=== PATIENT | male | born 1995 | race Caucasian/White ===

== ENCOUNTER 2017-07-20 21:26 | Emergency (ER) | payer BC, OTHER ==
--- NOTE | 2017-07-20 21:29 | PDOC ---
History of Present Illness - History of Present Illness Initial Comments: 07/20/17 21:53 Patient is a 22 M, with no significant PMHx, who presents with right knee injury , Patient states that he was playing basketball, planted right foot, and turned to the right and hurt his right knee. Patient injured this knee in 2011 and had surgery done for a ligament tear and bone fracture. ROS General: No fevers or chills, no weakness, no weight loss HEENT: No change in vision. No sore throat, No ear pain Cardiovascular: No chest pain or shortness of breath Respiratory:No cough, or wheezing. Gastrointestinal: No nausea, vomiting, diarrhea or constipation, No rectal bleeding Genitourinary: No dysuria, hematuria, or frequency Musculoskeletal: + right knee pain Neurologic: No headache, vertigo, dizziness or loss of consciousness Psychiatric: No depression Skin: No rashes or easy bruising Endocrine: No increased thirst or abnormal weight change Allergic: No skin or latex allergy All other systems reviewed and normal PE GENERAL: The patient is awake, alert, and fully oriented, in no acute distress. HEAD: Normal with no signs of trauma. EYES: Pupils equal, round and reactive to light, extraocular movements intact, sclera anicteric, conjunctiva clear. EXTREMITIES: Right knee - swelling and tenderness medially with increased discomfort on MCL stress testing. No bony tenderness on palpation. Neurovascularly intact NEUROLOGICAL: Normal speech PSYCH: Normal mood, normal affect. SKIN: Warm, Dry, normal turgor, no rashes or lesions noted. <Kandy Chavarria - Last Filed: 07/20/17 21:52> - General History Source: Patient Exam Limitations: No Limitations - History of Present Illness Initial Comments: A portion of this note was documented by scribe services under my direction. I have reviewed the details of the note, within reason, and agree with the documentation. The case summary and management plan written by me. X-ray no acute fracture or dislocation Assessment and plan: This is a 22-year-old male who injured his knee playing basketball. Patient has some tenderness and swelling medially. Most likely secondary to either meniscus or medial collateral ligament injury. Patient given Motrin for the pain and a Freddie wrap and crutches and discharged. Patient has an orthopedist he can follow-up with. <Rashmi Ortiz I - Last Filed: 07/20/17 22:20> - General Chief Complaint: Pain, Acute Stated Complaint: INJURY TO RIGHT KNEE Time Seen by Provider: 07/20/17 21:29 Past History <Kandy Chavarria - Last Filed: 07/20/17 21:52> - Immunization History Td Vaccination: Yes TDAP Vaccination: Yes Immunization Up to Date: Yes - Suicide/Smoking/Psychosocial Hx Smoking Status: No Smoking History: Never smoked Number of Cigarettes Smoked Daily: 0 Cigars Per Day: 0 Hx Alcohol Use: Yes (social) <Rashmi Ortiz I - Last Filed: 07/20/17 22:20> - Past Medical History Allergies/Adverse Reactions: Allergies Allergy/AdvReac Type Severity Reaction Status Date / Time No Known Allergies Allergy Verified 07/20/17 21:27 Home Medications: Ambulatory Orders NK [No Known Home Medication] 07/20/17 Review of Systems - Review of Systems Comments:: 07/20/17 21:55 see HPI <Kandy Chavarria - Last Filed: 07/20/17 21:52> *Physical Exam - Vital Signs Last Vital Signs Temp Pulse Resp BP Pulse Ox 97.8 F 100 H 18 99/55 100 07/20/17 21:29 07/20/17 21:29 07/20/17 21:29 07/20/17 21:29 07/20/17 21:29 - Physical Exam Comments: 07/20/17 21:56 see HPI <Kandy Chavarria - Last Filed: 07/20/17 21:52> *DC/Admit/Observation/Transfer - Attestations Scribe Attestion: 07/20/17 21:56 Documentation prepared by Kandy Chavarria, acting as medical historian for Rashmi Ortiz MD. <Kandy Chavarria - Last Filed: 07/20/17 21:52> - Discharge Dispostion Admit: No <Rashmi Ortiz I - Last Filed: 07/20/17 22:20> Diagnosis at time of Disposition: Sprain of right knee Qualifiers: Encounter type: initial encounter Involved ligament of knee: unspecified ligament Qualified Code(s): S83.91XA - Sprain of unspecified site of right knee , initial encounter - Discharge Dispostion Disposition: HOME Condition at time of disposition: Stable - Patient Instructions Printed Discharge Instructions: DI for Knee Sprain Additional Instructions: Tylenol or Motrin as needed for pain. Wear the Freddie wrap and use crutches as needed. Call your orthopedist in follow-up with your orthopedist. Return to the emergency department immediately with ANY new, persistent or worsening symptoms. Continue any medications as previously prescribed by your physician. You should follow up with your primary doctor as soon as possible regarding today's emergency department visit. . Please make sure your doctor reviews the results of your emergency evaluation. Thank you for coming to the Emergency Department today for your care. It was a pleasure to see you today. Please note that your evaluation is INCOMPLETE until you follow-up with your doctor.
[2017-07-20 21:32] VITALS: BP 99/55; PULSE 100; TEMP 97.8; BMI 27.0
[2017-07-20] MEDS ORDERED: IBUPROFEN 600 MG TABLET (FP) PO ONE ×2 (21:48→21:53)
== END 2017-07-20 22:19 | disposition home or self-care (01) ==
LOC: FER 21:26
DX: S83.91XA Sprain of unspecified site of right knee, initial encounter (principal); X58.XXXA Exposure to other specified factors, initial encounter; Y93.89 Activity, other specified; Y92.9 Unspecified place or not applicable
CPT/HCPCS: 73562-TC-RT-FY; 99281-25

== ENCOUNTER 2019-05-14 05:31 | Emergency (ER) | payer BC, OTHER ==
[2019-05-14 05:41] VITALS: BP 131/79; PULSE 102; TEMP 98.4; BMI 27.0
--- NOTE | 2019-05-14 06:13 | PDOC ---
History of Present Illness - General Chief Complaint: Injury Stated Complaint: INJURY,ETOH Time Seen by Provider: 05/14/19 05:38 History Source: Patient Exam Limitations: No Limitations - History of Present Illness Initial Comments: 05/14/19 06:08 This is an intoxicated 23-year-old male who was walking home from a friend's birthday constitution party when he tripped and fell hitting his head. Patient comes in with a laceration to his posterior occipital area as well as above his left eyebrow. Patient did not pass out. Patient is obviously intoxicated but otherwise has no complaints and is able to answer questions appropriately. Patient is here with his mother. Allergies: as per nursing notes Past Medical History: none Social history: Lives with family. No smoking. + alcohol. No illicit drugs. Surgical history: None General: No fevers or chills, no weakness, no weight loss HEENT: No change in vision. No sore throat,. No ear pain+ laceration overlying eyebrow and laceration posterior occipital area CardioVascular: no chest discomfort. No shortness of breath Respiratory:No cough, or wheezing. Gastrointestinal: no nausea, vomiting, diarrhea or constipation, No rectal bleeding Genitourinary: No dysuria, hematuria, or frequency Musculoskeletal: No joint or muscle pain or swelling Neurologic: No headache, vertigo, dizziness or loss of consciousness Psychiatric: nor depression Skin: No rashes or easy bruising Endocrine: no increased thirst or abnormal weight change Allergic: no skin or latex allergy All other systems reviewed and normal Exam: General: Well-nourished well-developed individual, no acute distress HEENT: Throat: Normal, tonsils normal, no erythema or exudate Neck: Supple, no meningeal signs, no lymphadenopathy Face: There is approximately 2 cm laceration over the left eyebrow with some mild venous oozing, there is no bony tenderness of the eyebrow or facial bones. Scalp : There is a large irregular laceration of the posterior occipital area approximately 8 cm in length total laceration is L-shaped. There is no palpable fracture under the laceration. Eyes::Pupils equal reactive and round, extraocular motion intact Chest: Nontender to palpation Cardiac: S1-S2 normal, regular rate and rhythm, no murmurs rubs or gallops Respiratory: Lungs clear to auscultation bilateral Abdomen: Soft, nondistended, normal bowel sounds, there is no tenderness on palpation diffusely Extremities: Warm, dry, no cyanosis, clubbing, or edema Skin: No rashes Neuro: Alert and oriented x3, CN II - XII intact, nonfocal exam with normal strength, normal sensation, normal reflexes, normal gait, Psych: Normal mood and affect Procedure note laceration repair Eyebrow laceration: Laceration was anesthetized with 1% lidocaine no epinephrine and closed with a total of 4 sutures of 6-0 Ethilon Scalp laceration laceration was anesthetized with 1% lidocaine no epinephrine irrigated with 200 cc of normal saline and then closed with a total of 12 cristiano CAT scan was obtained to rule out any fracture or intracranial injury as the second laceration was a deep relatively large laceration 05/14/19 06:32 Left elbow x-ray was negative for any acute pathology x-ray read by me Past History - Past Medical History Allergies/Adverse Reactions: Allergies Allergy/AdvReac Type Severity Reaction Status Date / Time No Known Allergies Allergy Verified 07/20/17 21:27 Home Medications: Ambulatory Orders Amox-Tr/K Cl [Augmentin - 500Mg Tablet] 1 tab PO BID #14 tab 05/14/19 COPD: No Other medical history: PREVIOUS HEAD INJURY X2 - Immunization History Td Vaccination: Yes TDAP Vaccination: Yes Immunization Up to Date: Yes - Psycho Social/Smoking Cessation Hx Smoking Status: No Smoking History: Never smoked Have you smoked in the past 12 months: No Number of Cigarettes Smoked Daily: 0 Cigars Per Day: 0 Hx Alcohol Use: Yes (social) Drug/Substance Use Hx: No Substance Use Type: None *Physical Exam - Vital Signs Last Vital Signs Temp Pulse Resp BP Pulse Ox 98.4 F 102 H 16 131/79 97 05/14/19 05:36 05/14/19 05:36 05/14/19 05:36 05/14/19 05:36 05/14/19 05:36 ED Treatment Course - RADIOLOGY Radiology Studies Ordered: Category Date Time Status HEAD CT WITHOUT CONTRAST [CT] Stat CT Scan 05/14/19 05:49 Ordered Discharge - Discharge Information Problems reviewed: Yes Clinical Impression/Diagnosis: Alcohol intoxication Facial laceration Qualifiers: Encounter type: initial encounter Qualified Code(s): S01.81XA - Laceration without foreign body of other part of head, initial encounter Scalp laceration Qualifiers: Encounter type: initial encounter Qualified Code(s): S01.01XA - Laceration without foreign body of scalp, initial encounter Contusion, elbow Qualifiers: Encounter type: initial encounter Laterality: left Qualified Code(s): S50.02XA - Contusion of left elbow, initial encounter Condition: Stable Disposition: HOME - Admission No - Follow up/Referral Referrals: ON STAFF,NOT [Primary Care Provider] - - Patient Discharge Instructions Additional Instructions: Tylenol as needed for pain. Do not take aspirin or Motrin as they both have blood thinning properties and you injured your head. Clean the lacerations once a day with a little peroxide and reapply some bacitracin . Suture and staple removal in 1 week. To prevent infection take Bactrim 1 tablet twice a day for 7 days Someone to check on you once tonight during the night. You should be arousable to their normal level of arousability for that time of the night. If you have been vomiting, had a seizure, or you are unable to be aroused or there is a change in your mental status call 911 go back to the nearest emergency department. Followup with your primary care doctor Return to the emergency department immediately with ANY new, persistent or worsening symptoms. Continue any medications as previously prescribed by your physician. You should follow up with your primary doctor as soon as possible regarding today's emergency department visit. . Please make sure your doctor reviews the results of your emergency evaluation. Thank you for coming to the Emergency Department today for your care. It was a pleasure to see you today. Please note that your evaluation is INCOMPLETE until you follow-up with your doctor. - Post Discharge Activity
[2019-05-14] MEDS ORDERED: AMOX TR/POT CLAV 500MG/125MG TABLETS (FP) PO ONE (06:33)
[2019-05-14] MEDS ORDERED: AMOX TR/POT CLAV 500MG/125MG TABLETS (FP) ONE (06:35)
== END 2019-05-14 06:39 | disposition home or self-care (01) ==
LOC: FER 05:31
PROC: 0HQ1XZZ Repair Face Skin, External Approach (ICD-10-PCS; principal; 2019-05-14)
DX: S01.112A Laceration without foreign body of left eyelid and periocular area, initial encounter (principal); F10.920 Alcohol use, unspecified with intoxication, uncomplicated; W18.39XA Other fall on same level, initial encounter; Y93.89 Activity, other specified; Y92.89 Other specified places as the place of occurrence of the external cause
CPT/HCPCS: 70450-TC; 73070-TC-LT-FY; 99281-25

== ENCOUNTER 2021-11-13 20:18 | Emergency (ER) | payer BC, OTHER ==
[2021-11-13 20:46] VITALS: BP 125/77; PULSE 72; TEMP 98.4; BMI 27.0
[2021-11-13] MEDS ORDERED: ACETAMINOPHEN 500 MG TABLET (FP) PO ONE (21:30)
[2021-11-13] MEDS ORDERED: ACETAMINOPHEN 500 MG TABLET (FP) ONE (21:30)
== END 2021-11-13 22:37 | disposition home or self-care (01) ==
LOC: FER 20:18
DX: S62.001A Unspecified fracture of navicular [scaphoid] bone of right wrist, initial encounter for closed fracture (principal); W19.XXXA Unspecified fall, initial encounter
CPT/HCPCS: 73090-TC-RT-FY; 73110-TC-RT-FY; 99283-25